=== PATIENT | male | born 1980 | race Caucasian/White ===

== ENCOUNTER 2021-06-23 06:21 | Day surgery (SDC) | payer BC ==
[2021-05-18 12:24] VITALS: BMI 25.8
[2021-06-23] MEDS ORDERED: oxyCODONE HCL 5 MG TABLET PO PRN (09:52)
[2021-06-23] MEDS ORDERED: ACETAMINOPHEN 1000 MG/100 ML BAG IVPB ONE (09:52)
[2021-06-23] MEDS ORDERED: LACTATED RINGERS SOLUTION 1,000 ML IV SCH (10:00)
[2021-06-23 12:16] VITALS: TEMP 98
[2021-06-23 12:45] VITALS: BP 144/82; PULSE 68
== END 2021-06-23 11:45 | disposition home or self-care (01) ==
LOC: FASU 06:21
PROVIDERS: ATTEND Orthopaedic Surgery Sports Medicine
PROC: 0SQD4ZZ Repair Left Knee Joint, Percutaneous Endoscopic Approach (ICD-10-PCS; principal; 2021-06-23 08:07)
DX: S83.242A Other tear of medial meniscus, current injury, left knee, initial encounter (principal); M23.42 Loose body in knee, left knee; X58.XXXA Exposure to other specified factors, initial encounter; Y93.9 Activity, unspecified; Y92.9 Unspecified place or not applicable
CPT/HCPCS: 88304-TC; 88311-TC; 94760